=== PATIENT | female | born 1995 | race Caucasian/White ===

== ENCOUNTER 2019-10-25 05:28 | Emergency (ER) | payer OTHER, MEDICAID, SELFPAY ==
[2019-10-25 05:42] VITALS: BP 127/57; PULSE 94; RESP 16; TEMP 36.9; O2SAT 100; BMI 22.1
--- NOTE | 2019-10-25 06:04 | DI.US.S_ITS ---
PROCEDURE: US PELVIC COMPLETE INDICATIONS: PAIN, DISCHARGE TECHNIQUE: Real-time scanning was performed of the pelvic organs, with image documentation. Additional endovaginal scanning was necessary due to incomplete visualization of the adnexal and endometrial structures by transabdominal scanning. COMPARISON: None. FINDINGS: Transabdominal scanning: Limited scanning through the kidneys shows no hydronephrosis. Right kidney measures 12.4 cm in length. Left kidney measures 11.4 cm in length. No pathologic free abdominal or pelvic fluid. Endovaginal scanning: Uterus: Uterus is normal in size at 7.2 x 3.0 x 5.1 cm. The endometrium measures 4 mm in combined thickness. There is a moderate amount of complex fluid within the endometrial cavity. Cervix appears normal. Ovaries: Right ovary measures 3.7 x 2.3 x 3.5 cm. Left ovary measures 3.7 x 2.0 x 1.2 cm. No ovarian or adnexal mass lesions. Normal vascular flow is identified. IMPRESSION: Moderate amount of complex appearing fluid within the endometrial cavity which may represent hemorrhagic or proteinaceous material. Otherwise, no acute sonographic abnormalities identified in the pelvis. Dictated by: Joni Prabhakar M.D. on 10/25/2019 at 7:55 Approved by: Joni Prabhakar M.D. on 10/25/2019 at 8:00
--- NOTE | 2019-10-25 06:09 | ED.ABDPAIN ---
HPI - Abdominal Pain General Chief Complaint: Abdominal Pain Stated Complaint: horrible stomach pain all night Time Seen by Provider: 10/25/19 05:29 Source: patient and family Mode of arrival: Ambulatory Limitations: no limitations History of Present Illness HPI narrative: 23-year-old female smoker with history of IV drug abuse (heroin) presents with her mother and a chief complaint of foul smelling urine and intense suprapubic tenderness since yesterday. She states her pain is worse when she moves and improves with rest. She denies any fever or chills nor nausea or vomiting. She denies any classic urinary complaints such as dysuria, frequency or urgency. She states her last menstrual cycle started yesterday and seems to be normal. She has been having some amount of vaginal discharge for many months and was last sexually active in June. She denies any history of the same MD complaint: abdominal pain Onset (ago): hour(s) Pain Consistency: constant Location: suprapubic Severity: moderate Quality: cramping and aching Radiation: none Relieving factors: rest Exacerbating factors: movement Related Data Patient : No Previous Rx's Medication Instructions Recorded doxycycline hyclate 100 mg PO BID #20 tab 10/25/19 metronidazole [Flagyl] 500 mg PO Q8H 10 Days #30 tab 10/25/19 Allergies Allergy/AdvReac Type Severity Reaction Status Date / Time No Known Drug Allergies Allergy Verified 10/25/19 07:44 Review of Systems Constitutional Constitutional: Denies chills, Denies fatigue, Denies fever(s), Denies frequent falls, Denies lethargy and Denies weakness Eyes Eyes: Denies change in vision, Denies eye discharge, Denies irritation and Denies loss of vision ENT Ears, Nose, Mouth, and Throat: Denies change in voice, Denies dizziness, Denies neck pain, Denies sore throat and Denies throat swelling Cardiovascular Cardiovascular: Denies chest pain, Denies irregular heart rhythm, Denies lightheadedness, Denies palpitations, Denies dyspnea, Denies dyspnea on exertion and Denies orthopnea Respiratory Respiratory: Denies cough, Denies dyspnea, Denies dyspnea on exertion and Denies wheezing Gastrointestinal Gastrointestinal: Reports abdominal pain, Denies change in bowel habits, Denies diarrhea, Denies nausea and Denies vomiting Genitourinary Genitourinary: Denies hematuria, Reports pelvic pain, Denies flank pain, Denies urinary incontinence and Denies urinary urgency Musculoskeletal Musculoskeletal: Denies back pain, Denies muscle weakness, Denies neck pain, Denies numbness and Denies tingling Integumentary/Breasts Skin/Breast: Denies pruritus, Denies erythema, Denies rash and Denies wounds Neurologic Neurologic: Denies behavioral changes, Denies confusion, Denies dizziness, Denies frequent falls, Denies loss of vision, Denies numbness, Denies tingling and Denies weakness Psychiatric Psychiatric: Denies anxiety, Denies behavioral changes, Denies confusion, Denies depression, Denies homicidal ideation and Denies suicidal ideation Endocrine Endocrine: Denies fatigue, Denies flushing and Denies palpitations Hematologic/Lymphatic Hematologic/Lymphatic: Denies easy bruising Allergic/Immunologic Allergic/Immunologic: Denies urticaria, Denies throat swelling and Denies wheezing Patient History Medical History (Updated 10/25/19 @ 08:13 by Zoran Latif DO) Heroin abuse (Acute) Family History Father Age: 59 Diabetes mellitus Mental health disorder Mother Age: 56 Mental health disorder Sister Age: 36 Mental health disorder Social History Smoking Status: Current every day smoker Smoking Status: Current every day smoker alcohol intake frequency: 0-2 drinks per day Substance Use Type: does not use Exam Narrative Exam Narrative: GENERAL: [23] year old patient appears stated age. Well-nourished, well-developed patient, in mild distress. Crying, obviously uncomfortable HEAD: Atraumatic. Normocephalic. EYES: Pupils equal round and reactive. Extraocular motions intact. No scleral icterus. No injection or drainage. ENT: Nose without bleeding, purulent drainage. Throat without erythema, tonsillar hypertrophy or exudate. Airway patent. NECK: Trachea midline. Non tender CARDIOVASCULAR: Regular rate and rhythm without murmurs, gallops, or rubs. RESPIRATORY: Clear to auscultation. Breath sounds equal bilaterally. No wheezes, rales, or rhonchi. GASTROINTESTINAL: Abdomen soft, tender across lower pelvic region, mainly in suprapubic region, nondistended. PELVIC: Yellow discharge from cervical os which itself is a bit tender and friable, no adnexal fullness or tenderness. Exam performed with patient's permission and female nursing printed circuit board assembler at the bedside EXTREMITIES: No edema or joint tenderness. BACK: Nontender without deformity or crepitance. No flank tenderness. NEURO: AOx3. SKIN: No rash or erythema of visible areas Initial Vital Signs Initial Vital Signs: Vital Signs Temperature 98.4 F 10/25/19 05:42 Pulse Rate 94 H 10/25/19 05:42 Respiratory Rate 16 10/25/19 05:42 Blood Pressure 127/57 L 10/25/19 05:42 Pulse Oximetry 100 10/25/19 05:42 Course Orders Ordered: Discontinued Medications Ceftriaxone Sodium (Rocephin) 250 mg IM NOW ONE Stop: 10/25/19 07:11 Last Admin: 10/25/19 08:04 Dose: 250 mg Documented by: OSBALDO Sodium Chloride (Normal Saline 0.9%) 1,000 mls @ 1,000 mls/hr IV BOLUS ONE Stop: 10/25/19 07:02 Last Admin: 10/25/19 07:21 Dose: Not Given Documented by: OSBALDO Ketorolac Tromethamine (Toradol) 15 mg IV NOW ONE Stop: 10/25/19 06:04 Last Admin: 10/25/19 07:21 Dose: Not Given Documented by: OSBALDO Ketorolac Tromethamine (Toradol) 60 mg IM NOW ONE Stop: 10/25/19 06:54 Last Admin: 10/25/19 06:55 Dose: 60 mg Documented by: ANNY Vital Signs Vital signs: Vital Signs - 8 hr 10/25/19 05:42 Temperature 98.4 F Pulse Rate 94 H Respiratory Rate 16 Blood Pressure 127/57 L Pulse Oximetry 100 MDM - Abdominal Pain Lab Data Result diagrams: 10/25/19 07:43 10/25/19 07:43 Labs: Lab Results 10/25/19 10/25/19 Range/Units 07:43 07:43 WBC 26.6 H (4.5-11.0) X10^3/uL RBC 4.40 (4.0-5.2) X10^6/uL Hgb 12.8 (12.0-16.0) g/dL Hct 38.0 (36-46) % MCV 86.3 (80-100) fL MCH 29.0 (26-34) PG MCHC 33.6 (30-36) % RDW 14.2 (11.6-14.8) % Plt Count 308 (150-400) X10^3/uL Neut % (Auto) Not Reportable Lymph % (Auto) Not Reportable Ritchie % (Auto) Not Reportable Eos % (Auto) Not Reportable Baso % (Auto) Not Reportable Lymph # (Auto) Not Reportable Ritchie # (Auto) Not Reportable Baso # (Auto) Not Reportable Total Counted 100 Seg Neutrophils % 86.0 H (38-70) % Band Neutrophils % 4.0 (3-7) % Lymphocytes % (Manual) 4.0 L (25-45) % Monocytes % (Manual) 6.0 (2-11) % Neutrophils # (Manual) 88387 H (5298-1544) /uL RBC Morphology Normal morphology Sodium 140 (137-145) mmol/L Potassium 4.1 (3.4-5.1) mmol/L Chloride 106 (98-107) mmol/L Carbon Dioxide 26 (22-32) mmol/L BUN 13 (7-17) mg/dL Creatinine 0.49 L (0.52-1.04) mg/dL Estimated GFR > 60.0 (>60) mL/min BUN/Creatinine Ratio 26.5 H (6-22) Glucose 127 H (70-100) mg/dL Calcium 9.3 (8.4-10.2) mg/dL Point of care testing: Point of Care Testing Test Results Negative Urine Dip Bedside Urine Glucose Negative Bedside Urine Bilirubin - Negative Bedside Urine Ketone +/- 5 Urine Specific Connelly 1.025 Bedside Urine Occult Blood +/- Bedside Urine Protein + 30 Bedside Urine Urobilinogen +/- 1mg Bedside Urine Nitrite + Positive Bedside Urine Leukocytes +++ 500 Esterase Imaging Data US - HAND SPRING REPAIRER: Radiologist's Impression: Chart Viewer Diagnostics DATE TYPE STATUS AUTHOR Hx 10/25/19 06:04 Joni Prabhakar Taylor A , [id number] [facility] ER, [facility] ED 175.26cm 68.039kg BMI: 22.2kg/m? Abdominal Pain Search Chart No Data to Display ONSET 10/25/19 08:17 Kaia Vigil 23 F [address] [address] Ultrasound Report Signed Patient: Kaia Vigil [facility]#: [id number] : 1995Acct:[id number] Age/Sex: 23 / FDate of Service: 10/25/19 Loc: ED Accession Number: [id number] Procedure: US pelvic complete Ordering Provider: Zoran Latif D.O. PROCEDURE: US PELVIC COMPLETE INDICATIONS: PAIN, DISCHARGE TECHNIQUE: Real-time scanning was performed of the pelvic organs, with image documentation. Additional endovaginal scanning was necessary due to incomplete visualization of the adnexal and endometrial structures by transabdominal scanning. COMPARISON: None. FINDINGS: Transabdominal scanning: Limited scanning through the kidneys shows no hydronephrosis. Right kidney measures 12.4 cm in length. Left kidney measures 11.4 cm in length. No pathologic free abdominal or pelvic fluid. Endovaginal scanning: Uterus: Uterus is normal in size at 7.2 x 3.0 x 5.1 cm. The endometrium measures 4 mm in combined thickness. There is a moderate amount of complex fluid within the endometrial cavity. Cervix appears normal. Ovaries: Right ovary measures 3.7 x 2.3 x 3.5 cm. Left ovary measures 3.7 x 2.0 x 1.2 cm. No ovarian or adnexal mass lesions. Normal vascular flow is identified. IMPRESSION: Moderate amount of complex appearing fluid within the endometrial cavity which may represent hemorrhagic or proteinaceous material. Otherwise, no acute sonographic abnormalities identified in the pelvis. Dictated by: Joni Prabhakar M.D. on 10/25/2019 at 7:55 Approved by: Joni Prabhakar M.D. on 10/25/2019 at 8:00 Discharge Plan Departure Patient Disposition: Home Clinical Impression: Acute pelvic inflammatory disease Discharge Date/Time: 10/25/19 08:27 Instructions: DI for Pelvic Inflammatory Disease Activity Restrictions/Additional Instructions: *You have been diagnosed with [ pelvic inflamamtory disease ] *What to do: *Take medications as directed *Follow up with your primary care provider in 2-3 days, call for an appointment. Let them know you were seen in the Emergency Department and that we ask that you be seen in follow up *Return to ER if you should have any new, worsening or concerning symptoms Prescriptions: New metronidazole [Flagyl] 500 mg tablet 500 mg PO Q8H 10 Days Qty: 30 RF: 0 doxycycline hyclate 100 mg tablet 100 mg PO BID Qty: 20 RF: 0
[2019-10-25] MEDS: KETOROLAC 60 MG/2 ML VIAL IM (06:55)
--- NOTE | 2019-10-25 07:05 | PC.NURSE ---
Standby assist for pelvic exam with .
[2019-10-25 07:56] LABS: Hemoglobin 12.8 g/dL (12.0-16.0); Mean Corpuscular HGB Conc 33.6 % (30-36); Mean Corpuscular Volume 86.3 fL (80-100); Platelet Count 308 X10^3/uL (150-400); Red Cell Distribution Width 14.2 % (11.6-14.8); White Blood Cell Count 26.6 X10^3/uL (4.5-11.0)
[2019-10-25 07:59] LABS: Add Manual Diff / Slide Review YES
[2019-10-25] MEDS: cefTRIAXone 500 MG VIAL 250 MG IM (08:04)
[2019-10-25 08:05] LABS: BUN Creatinine Ratio 26.5 (6-22); Blood Urea Nitrogen 13 mg/dL (7-17); Calcium 9.3 mg/dL (8.4-10.2); Carbon Dioxide 26 mmol/L (22-32); Chloride 106 mmol/L (98-107); Estimated Glomerular Filt Rate > 60.0 mL/min (>60); Glucose 127 mg/dL (70-100); HEMOLYSIS 24 (0-50); Potassium 4.1 mmol/L (3.4-5.1); Sodium 140 mmol/L (137-145)
[2019-10-25 08:17] VITALS: BP 120/78; PULSE 88; RESP 20; TEMP 36.8; O2SAT 99
[2019-10-25 08:29] LABS: Neutrophils Absolute Manual 23940 /uL (3000-5900); RBC Morphology Normal Morphology; Total Cells Counted 100
== END 2019-10-25 08:27 | disposition home or self-care (01) ==
PROVIDERS: Emergency Provider Emergency Medicine; Family Provider Family Medicine
DX: N73.0 Acute parametritis and pelvic cellulitis (principal)
CPT/HCPCS: 36415; 76830; 76856; 80048; 81003; 81025; 85025; 87070; 87077; 87205; 96372; 99284; J0696; J1885